=== PATIENT | male | born 1970 | race African-American/Black ===

== ENCOUNTER 2016-05-25 23:01 | Emergency (ER) | payer SELFPAY ==
[2016-05-25 23:34] VITALS: BP 130/70; PULSE 90; TEMP 98.5; BMI 29.7
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
[2016-05-26] MEDS ORDERED: IBUPROFEN 600 MG TABLET (FP) PO ONE ×2 (00:18→00:23)
== END 2016-05-26 02:47 | disposition home or self-care (01) ==
LOC: SUPCPDRO 23:01 → JER 23:01
DX: S69.81XA Other specified injuries of right wrist, hand and finger(s), initial encounter (principal); Y04.2XXA Assault by strike against or bumped into by another person, initial encounter; Y93.89 Activity, other specified; Y92.048 Other place in boarding-house as the place of occurrence of the external cause; Y07.499 Other family member, perpetrator of maltreatment and neglect; F31.9 Bipolar disorder, unspecified; F90.9 Attention-deficit hyperactivity disorder, unspecified type; F41.8 Other specified anxiety disorders; I10 Essential (primary) hypertension; G40.909 Epilepsy, unspecified, not intractable, without status epilepticus; F17.210 Nicotine dependence, cigarettes, uncomplicated
CPT/HCPCS: 70450-TC; 73130-TC-RT; 99283-25

== ENCOUNTER 2017-03-17 17:16 | Emergency (ER) | payer OTHER ==
[2017-03-17 17:26] VITALS: TEMP 98; BMI 30.9
[2017-03-17 17:31] VITALS: BP 104/40; PULSE 74
[2017-03-17] MEDS ORDERED: ASPIRIN 81 MG CHEWABLE TABLETS PO ONE (18:20)
--- NOTE | 2017-03-17 18:20 | PDOC ---
History of Present Illness - General History Source: Patient Exam Limitations: No Limitations - History of Present Illness Initial Comments: 03/17/17 18:43 The patient is a 46-year-old male with a significant past medical history of epilepsy, ADHD, and bipolar disorder, and presents to the emergency department sent from [address] [place] [address] where he went for a regular check up. Patient states that he went away for a while and has been off his medication, so he presented to the clinic to to request his renewal for his medication. He presented to ED for an EKG. He also states that he just met his biological fathers family who passed from colon cancer and he expressed concern. Denies any psx. The patient denies chest pain, shortness of breath, headache and dizziness. The patient denies fever, chills, nausea, vomit, diarrhea and constipation. The patient denies dysuria, frequency, urgency and hematuria. Allergies: NKDA <Key Hinkle - Last Filed: 03/17/17 18:43> <Teressa Valenzuela - Last Filed: 03/18/17 01:10> - General Chief Complaint: Chest Pain Stated Complaint: CHEST PAIN Time Seen by Provider: 03/17/17 17:31 Past History <Key Hinkle - Last Filed: 03/17/17 18:43> - Past Medical History Asthma: Yes COPD: No Psychiatric Problems: Yes (anxiety, Bipolar, adhd,panic attacks,depression) Seizures: Yes - Immunization History Immunization Up to Date: No - Suicide/Smoking/Psychosocial Hx Smoking History: Current every day smoker Have you smoked in the past 12 months: No Number of Cigarettes Smoked Daily: 3 Information on smoking cessation initiated: Yes 'Breaking Loose' booklet given: 03/17/17 Hx Alcohol Use: No Drug/Substance Use Hx: No Substance Use Type: None <Teressa Valenzuela - Last Filed: 03/18/17 01:10> - Past Medical History Allergies/Adverse Reactions: Allergies Allergy/AdvReac Type Severity Reaction Status Date / Time No Known Allergies Allergy Verified 03/17/17 17:22 Home Medications: Ambulatory Orders Albuterol Sulfate Inhaler - [Ventolin Hfa Inhaler -] 2 inh PO Q6H 03/17/17 Fluticasone Prop 0.05% Nasal [Flonase -] 1 - 2 spray NS DAILY 03/17/17 Ibuprofen 800 mg PO BID 03/17/17 Levetiracetam [Keppra] 250 mg PO TID 03/17/17 Loratadine [Allergy] 10 mg PO DAILY 03/17/17 Pseudoephedrine HCl [Sudafed] 1 - 2 mg PO PRN 03/17/17 Quetiapine Fumarate [Seroquel] 150 tab PO HS 03/17/17 Review of Systems - Review of Systems Able to Perform ROS?: Yes Comments:: 03/17/17 18:43 CONSTITUTIONAL: Absent: fever, chills, diaphoresis, generalized weakness, malaise, loss of appetite HEENT: Absent: rhinorrhea, nasal congestion, throat pain, throat swelling, difficulty swallowing, mouth swelling, ear pain, eye pain, visual Changes CARDIOVASCULAR: Absent: chest pain, syncope, palpitations, irregular heart rate, lightheadedness , peripheral edema RESPIRATORY: Absent: cough, shortness of breath, dyspnea with exertion, orthopnea, wheezing, stridor, hemoptysis GASTROINTESTINAL: Absent: abdominal pain, abdominal distension, nausea, vomiting, diarrhea, constipation, melena, hematochezia GENITOURINARY: Absent: dysuria, frequency, urgency, hesitancy, hematuria, flank pain, genital pain MUSCULOSKELETAL: Absent: myalgia, arthralgia, joint swelling SKIN: Absent: rash, itching, pallor HEMATOLOGIC/IMMUNOLOGIC: Absent: easy bleeding, easy bruising, lymphadenopathy, frequent infections ENDOCRINE: Absent: unexplained weight gain, unexplained weight loss, heat intolerance, cold intolerance NEUROLOGIC: Absent: headache, focal weakness or paresthesias, dizziness, unsteady gait, seizure, mental status changes, bladder or bowel incontinence PSYCHIATRIC: Absent: anxiety, depression, suicidal or homicidal ideation, hallucinations. <Key Hinkle - Last Filed: 03/17/17 18:43> *Physical Exam - Vital Signs Last Vital Signs Temp Pulse Resp BP Pulse Ox 98.0 F 74 16 104/40 97 03/17/17 17:22 03/17/17 17:22 03/17/17 17:22 03/17/17 17:22 03/17/17 17:22 - Physical Exam Comments: 03/17/17 18:43 GENERAL: Well developed, well nourished. Awake and alert. No acute distress. HEENT: Normocephalic, atraumatic. PERRLA, EOMI. No conjunctival pallor. Sclera are non- icteric. Moist mucous membranes. Oropharynx is clear. NECK: Supple. Full ROM. No JVD. Carotid pulses 2+ and symmetric, without bruits. No thyromegaly. No lymphadenopathy. CARDIOVASCULAR: Regular rate and rhythm. No murmurs, rubs, or gallops. Distal pulses are 2+ and symmetric. PULMONARY: No evidence of respiratory distress. Lungs clear to auscultation bilaterally. No wheezing, rales or rhonchi. ABDOMINAL: Soft. Non-tender. Non-distended. No rebound or guarding. No organomegaly. Normoactive bowel sounds. MUSCULOSKELETAL Normal range of motion at all joints. No bony deformities or tenderness. No CVA tenderness. EXTREMITIES: No cyanosis. No clubbing. No edema. No calf tenderness. SKIN: Warm and dry. Normal capillary refill. No rashes. No jaundice. NEUROLOGICAL: Alert, awake, appropriate. Cranial nerves 2-12 intact. No deficits to light touch and temperature in face, upper extremities and lower extremities. No motor deficits in the in face, upper extremities and lower extremities. Normoreflexic in the upper and lower extremities. Normal speech. Toes are down-going bilaterally. Gait is normal without ataxia. PSYCHIATRIC: Cooperative. Good eye contact. Appropriate mood and affect. <Key Hinkle - Last Filed: 03/17/17 18:43> - Vital Signs Last Vital Signs Temp Pulse Resp BP Pulse Ox 98.0 F 74 16 104/40 97 03/17/17 17:22 03/17/17 17:22 03/17/17 17:22 03/17/17 17:22 03/17/17 17:22 <Teressa Valenzuela - Last Filed: 03/18/17 01:10> ED Treatment Course - Medications Given in the ED: ED Medications Discontinued Medications Generic Name Dose Route Start Last Admin Trade Name Freq PRN Reason Stop Dose Admin Aspirin 162 mg 03/17/17 18:20 03/17/17 18:26 Asa - PO 03/17/17 18:21 162 mg ONCE ONE Administration <Key Hinkle - Last Filed: 03/17/17 18:43> - LABORATORY CBC & Chemistry Diagram: 03/17/17 18:25 12/18/17 18:25 <Teressa Valenzuela - Last Filed: 03/18/17 01:10> Medical Decision Making - Medical Decision Making 03/18/17 01:04 46-year-old male was seen at the clinic today and told that he had had some chest discomfort in the past. EKG was done here did not show any acute cardiac ischemia. Troponin is negative. Patient denies any fever or chills or nausea or vomiting or cough, shortness of breath. Patient denied any chest pain upon arrival. Patient states that he saw a primary care physician earlier today but no bloods were drawn CBC is unremarkable. Chemistry showed elevated cr=1.7 pt was given a copy of his labs and will follow up with his primary physician. Patient discharged home 03/18/17 01:08 <Teressa Valenzuela - Last Filed: 03/18/17 01:10> *DC/Admit/Observation/Transfer - Attestations Scribe Attestion: 03/17/17 18:44 Documentation prepared by SUNDAY White, acting as vice president medical affairs for Teressa Valenzuela MD/DO. <Key Hinkle - Last Filed: 03/17/17 18:43> <Teressa Valenzuela - Last Filed: 03/18/17 01:10> Diagnosis at time of Disposition: Atypical chest pain - Discharge Dispostion Disposition: HOME Condition at time of disposition: Stable - Referrals Referrals: Joann White NP [Primary Care Provider] - Darwin Fitzpatrick MD [Staff Physician] - - Patient Instructions Printed Discharge Instructions: DI for Atypical Chest Pain Additional Instructions: please follow up with your regular doctor or go to [facility] Internal Medicine group - Post Discharge Activity
[2017-03-17] MEDS ORDERED: ASPIRIN 81 MG CHEWABLE TABLETS ONE (18:29)
[2017-03-17 19:19] LABS: INR 1.09 (0.82-1.09); PROTHROMBIN TIME (PATIENT) 12.3 SEC (9.98-11.88)
[2017-03-17 19:23] LABS: BASO % 1.4 % (0-2.0); EOS % 7.7 % (0-4.5); MCH 29.7 pg (25.7-33.7); MCHC 33.1 g/dl (32.0-35.9); MEAN CELL VOLUME 89.8 fl (80-96); MEAN PLT VOLUME 8.2 fl (7.5-11.1); NEUT % 37.6 % (42.8-82.8); PLATELET COUNT 237 K/MM3 (134-434); WHITE BLOOD COUNT 6.9 K/mm3 (4.0-10.0)
[2017-03-17 19:45] LABS: ALBUMIN 3.3 g/dl (3.4-5.0); ANION GAP 8 (8-16); BILIRUBIN,TOTAL 0.3 mg/dL (0.2-1.0); CALCIUM 8.2 mg/dL (8.5-10.1); CO2 26 mmol/L (21-32); CREATININE 1.7 mg/dL (0.7-1.3); GLUCOSE,RANDOM 100 mg/dL (74-106); MAGNESIUM 2.2 mg/dL (1.8-2.4); SGOT/AST 75 U/L (15-37); SGPT/ALT 184 U/L (12-78); TOT PROT 7.1 g/dl (6.4-8.2)
[2017-03-17 19:47] LABS: ALK PHOS 88 U/L (45-117); CPK 359 IU/L (39-308); TROPONIN I < 0.02 ng/ml (0.00-0.05)
--- NOTE | 2017-03-19 11:28 | EKG ---
Test Reason : Blood Pressure : / mmHG Vent. Rate : 067 BPM Atrial Rate : 067 BPM P-R Int : 168 ms QRS Dur : 086 ms QT Int : 382 ms P-R-T Axes : 061 014 004 degrees QTc Int : 403 ms NORMAL SINUS RHYTHM POSSIBLE LEFT ATRIAL ENLARGEMENT SEPTAL INFARCT , AGE UNDETERMINED ABNORMAL ECG NO PREVIOUS ECGS AVAILABLE Confirmed by AKIKO CUNNINGHAM MD ([id number]) on 03/19/2017 11:28:27 AM Referred By: Confirmed By:AKIKO CUNNINGHAM MD
== END 2017-03-17 22:04 | disposition home or self-care (01) ==
LOC: JER 17:16
DX: R07.89 Other chest pain (principal); F90.9 Attention-deficit hyperactivity disorder, unspecified type; F31.9 Bipolar disorder, unspecified; G40.909 Epilepsy, unspecified, not intractable, without status epilepticus; F17.210 Nicotine dependence, cigarettes, uncomplicated; F41.9 Anxiety disorder, unspecified
CPT/HCPCS: 36415; 71020-TC; 73070-TC-LT; 80053; 82550; 82553; 83735; 84484; 85025; 85610; 93005; 93010; 99284-25

== ENCOUNTER 2017-09-25 22:10 | Emergency (ER) | payer OTHER ==
[2017-09-25 22:17] VITALS: BP 107/62; PULSE 82; TEMP 98.2; BMI 27.4
[2017-09-26] MEDS ORDERED: NAPROXEN 500 MG TABLET (FP) PO ONE (00:27)
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
[2017-09-26] MEDS ORDERED: NAPROXEN 500 MG TABLET (FP) ONE (01:16)
== END 2017-09-26 04:48 | disposition home or self-care (01) ==
LOC: JERFT 22:10 → JER 22:10
DX: S89.81XA Other specified injuries of right lower leg, initial encounter (principal); W01.0XXA Fall on same level from slipping, tripping and stumbling without subsequent striking against object, initial encounter; Y93.89 Activity, other specified; Y92.038 Other place in apartment as the place of occurrence of the external cause; Y99.8 Other external cause status; W50.0XXA Accidental hit or strike by another person, initial encounter; F31.9 Bipolar disorder, unspecified; F41.9 Anxiety disorder, unspecified; F90.9 Attention-deficit hyperactivity disorder, unspecified type; F41.0 Panic disorder [episodic paroxysmal anxiety]; F17.210 Nicotine dependence, cigarettes, uncomplicated; Z86.69 Personal history of other diseases of the nervous system and sense organs
CPT/HCPCS: 73562-TC-RT-FY; 99282-25

== ENCOUNTER 2018-06-14 13:39 | Emergency (ER) | payer OTHER ==
[2018-06-14 13:53] VITALS: BMI 29.3
--- NOTE | 2018-06-14 14:01 | PDOC ---
History of Present Illness - General Chief Complaint: Lightheaded Stated Complaint: DIZZINESS,CHEST PAIN,SOB Time Seen by Provider: 06/14/18 13:53 - History of Present Illness Initial Comments: 06/14/18 14:00 47 yo M with h/o seizure disorder, GERD, who p/w diffuse pleuritic chest pain, myalgias, cough. Patient reports 3-4 weeks of yellow, sputum productive cough, and rhinoorhea. Now p/w 1 week of SOB, widespread myalgias, diffuse pleuritic chest pain, nausea without vomiting, lightheadedness, subjective fevers. Symptoms not alleviated with Tylenol OTC. Patient denies vision change, palpitations, wheezing, orthopena, PND, leg swelling/pain, urinary complaints, hematuria, BPR, abdominal pain, diarrhea, constipation, lightheadedness, weakness, sensory changes. PMHx: as noted above ROS: as noted SHx: +tobacco use. Denies IVDA Allergies: NKDA Past History - Past Medical History Allergies/Adverse Reactions: Allergies Allergy/AdvReac Type Severity Reaction Status Date / Time influenza virus vaccine, Allergy Verified 06/14/18 13:54 specific Home Medications: Ambulatory Orders Albuterol Sulfate Inhaler - [Ventolin Hfa Inhaler -] 2 inh PO Q6H 03/17/17 Fluticasone Prop 0.05% Nasal [Flonase -] 1 - 2 spray NS DAILY 03/17/17 Ibuprofen 800 mg PO BID 03/17/17 Levetiracetam [Keppra] 250 mg PO TID 03/17/17 Loratadine [Allergy] 10 mg PO DAILY 03/17/17 Pseudoephedrine HCl [Sudafed] 1 - 2 mg PO PRN 03/17/17 Quetiapine Fumarate [Seroquel] 150 tab PO HS 03/17/17 Asthma: Yes COPD: No Psychiatric Problems: Yes (anxiety, Bipolar, adhd,panic attacks,depression) Seizures: Yes Other medical history: NARCOLEPSY - Immunization History Immunization Up to Date: No - Suicide/Smoking/Psychosocial Hx Smoking History: Former smoker Have you smoked in the past 12 months: Yes Number of Cigarettes Smoked Daily: 3 If you are a former smoker, when did you quit?: 1 MONTH AGO Information on smoking cessation initiated: No 'Breaking Loose' booklet given: 03/17/17 Hx Alcohol Use: No Drug/Substance Use Hx: No Substance Use Type: None Review of Systems - Review of Systems Comments:: 06/14/18 14:01 GENERAL/CONSTITUTIONAL: No fever or chills. No weakness. HEAD, EYES, EARS, NOSE AND THROAT:+ Sore throat. No change in vision. No ear pain or discharge. CARDIOVASCULAR:+ chest pain and shortness of breath RESPIRATORY: + cough. no wheezing, or hemoptysis. GASTROINTESTINAL: No nausea, vomiting, diarrhea or constipation. GENITOURINARY: No dysuria, frequency, or change in urination. MUSCULOSKELETAL: No joint or muscle swelling or pain. No neck or back pain. SKIN: No rash NEUROLOGIC: + lightheadedness. No headache, vertigo, loss of consciousness, or change in strength/sensation. ENDOCRINE: No increased thirst. No abnormal weight change HEMATOLOGIC/LYMPHATIC: No anemia, easy bleeding, or history of blood clots. ALLERGIC/IMMUNOLOGIC: No hives or skin allergy. *Physical Exam - Vital Signs Last Vital Signs Temp Pulse Resp BP Pulse Ox 100.8 F H 97 H 22 H 117/79 96 06/14/18 13:47 06/14/18 13:47 06/14/18 13:47 06/14/18 13:47 06/14/18 13:47 - Physical Exam Comments: 06/14/18 14:01 GENERAL: Awake, alert, and fully oriented, in no acute distress HEAD: No signs of trauma, normocephalic, atraumatic EYES: PERRLA, EOMI, sclera anicteric, conjunctiva clear ENT: Auricles normal inspection, hearing grossly normal, nares patent, oropharynx clear without exudates. Moist mucosa NECK: Normal ROM, supple, no lymphadenopathy, JVD, or masses LUNGS: No distress, speaks full sentences, clear to auscultation bilaterally HEART: Regular rate and rhythm, normal S1 and S2, no murmurs, rubs or gallops, peripheral pulses normal and equal bilaterally. ABDOMEN: Soft, nontender, normoactive bowel sounds. No guarding, no rebound. No masses EXTREMITIES : Normal inspection, Normal range of motion, no edema. No clubbing or cyanosis. NEUROLOGICAL: Cranial nerves II through XII grossly intact. Normal speech, normal gait, no focal sensorimotor deficits SKIN: Warm, Dry, normal turgor, no rashes or lesions noted Moderate Sedation - Procedure Monitoring Vital Signs: Procedure Monitoring Vital Signs Temperature 100.8 F H 06/14/18 13:47 Pulse Rate 97 H 06/14/18 13:47 Respiratory Rate 22 H 06/14/18 13:47 Blood Pressure 117/79 06/14/18 13:47 O2 Sat by Pulse Oximetry (%) 96 06/14/18 13:47 ED Treatment Course - LABORATORY CBC & Chemistry Diagram: 06/14/18 14:06 06/14/18 14:06 Medical Decision Making - Medical Decision Making 06/14/18 14:12 47 yo M with h/o GERD, who p/w diffuse pleuritic chest pain, myalgias, cough x 1 week. Temp 100.8, HR 97, vitals otherwise wnl, A&Ox3. Physical exam unremarkable. R/o PNA. PERC NEG PE. Will consider flu, viral URI, COPD. ED Course: Tylenol, NS 1 L EKG: NSR, HR 100, with absent CATHERINE, STD. Normal interval duration and axis. 06/14/18 15:43 CXR: Unremarkable CBC, CMP: Unremarkable Patient stable for d/c with return precautions. *DC/Admit/Observation/Transfer Diagnosis at time of Disposition: Chest pain, pleuritic - Discharge Dispostion Disposition: HOME Condition at time of disposition: Stable Decision to Admit order: No - Referrals Referrals: ON STAFF,NOT [Primary Care Provider] - - Patient Instructions Printed Discharge Instructions: DI for Cough -- Adult Additional Instructions: Please return to the emergency department with any new or worsening symptoms or concerns. Please follow up with your primary care physician within 72 hours. Can take Motrin 600 mg every 6 hours and Tylenol 650 mg every 6 hours as needed for symptoms. - Post Discharge Activity - Attestations Physician Attestion: 06/14/18 14:12 I attest to the information provided in this note.
[2018-06-14 14:20] LABS: BASO % 1.8 % (0-2.0); EOS % 1.2 % (0-4.5); HEMATOCRIT 41.1 % (35.4-49); HEMOGLOBIN 14.4 GM/dL (11.7-16.9); LYMPH % 28.9 % (8-40); MCHC 35.1 g/dl (32.0-35.9); MEAN CELL VOLUME 91.2 fl (80-96); MEAN PLT VOLUME 7.8 fl (7.5-11.1); MONO % 24.7 % (3.8-10.2); NEUT % 43.4 % (42.8-82.8); PLATELET COUNT 177 K/MM3 (134-434); RDW 14.2 % (11.9-15.9); WHITE BLOOD COUNT 4.9 K/mm3 (4.0-10.0)
[2018-06-14] MEDS ORDERED: SODIUM CHLORIDE 1,000 ML IV STA (14:20)
[2018-06-14] MEDS ORDERED: ACETAMINOPHEN 1000 MG/100 ML VIAL (NON FORMULARY) IVPB ONE (14:20)
[2018-06-14] MEDS ORDERED: ACETAMINOPHEN INJECTION 100 ML IVPB ONE (14:21)
[2018-06-14 14:49] LABS: ALBUMIN 3.4 g/dl (3.4-5.0); ALK PHOS 77 U/L (45-117); ANION GAP 6 MMOL/L (8-16); BILIRUBIN,TOTAL 0.2 mg/dL (0.2-1); BLOOD UREA NITROGEN 9 mg/dL (7-18); CALCIUM 8.6 mg/dL (8.5-10.1); CHLORIDE 104 mmol/L (98-107); CO2 27 mmol/L (21-32); CREATININE 1.4 mg/dL (0.55-1.3); GLUCOSE,RANDOM 127 mg/dL (74-106); POTASSIUM 4.1 mmol/L (3.5-5.1); SGOT/AST 52 U/L (15-37); SGPT/ALT 70 U/L (13-61); SODIUM 138 mmol/L (136-145); TOT PROT 7.3 g/dl (6.4-8.2)
--- NOTE | 2018-06-14 15:16 | PDOC ---
Attending Attestation - HPI HPI: 06/14/18 15:50 The patient is a 47 year old male, with a significant past medical history of epilepsy, ADHD, and bipolar disorder, who presents to the emergency department with, cold symptoms. As per patient, he has been experiencing 3-4 weeks of a productive cough with yellow sputum with nasal congestion. Over the past week, patient notes intermittent fevers, nausea, lightheadedness, pleuritic chest pain , diffuse myalgias, and shortness of breath. Patient notes taking Tylenol, without relief prompting his arrival. He denies any recent diarrhea or constipation. He denies any recent dysuria, frequency, urgency or hematuria. Allergies: Influenza virus vaccine. Past surgical history: None reported. Social History: Smoker. Neurologist: Dr. Fernández. <Red Burden - Last Filed: 06/14/18 15:50> - Resident Resident Name: Jeffrey Yoon - ED Attending Attestation I have performed the following: I have examined & evaluated the patient, The case was reviewed & discussed with the resident, I agree w/resident's findings & plan, Exceptions are as noted - Physicial Exam PE: 06/14/18 16:00 GENERAL: The patient is awake, alert, and fully oriented, Nontoxic - in no acute distress. HEAD: Normocephalic, atraumatic. EYES: extraocular movements intact, sclera anicteric, conjunctiva clear. ENT: Normal voice, Moist mucous membranes, posterior oropharynx non erythemadous without exudates, several hypertrophied papilla on mid tongue NECK: Normal range of motion, supple, neg brudzinski or kernigs LUNGS: Breath sounds equal, clear to auscultation bilaterally. No wheezes, no rhonchi, no rales. HEART: Regular rate and rhythm, normal S1 and S2 without murmur, rub or gallop. ABDOMEN: Soft, nontender, normoactive bowel sounds. No guarding, no rebound. . No CVA tenderness EXTREMITIES: Normal range of motion, no edema. No clubbing or cyanosis. No cords, erythema, or tenderness. NEUROLOGICAL: No facial assymetry, Normal speech, PSYCH: Normal mood, normal affect. SKIN: hot to touch, Dry, normal turgor, - Medical Decision Making 06/14/18 15:35 47y M hx of seizures, gerd, presents with complaint of pleutic cp, myalgias, cough x 3-4 weeks with nasal congestion and cough productive of yellowish sputum , endores subjective fever/chills, intermittent nausea, lgitheahdness likely viral syndrome vs influenza no signs of meningusmus will give tylenol, fluids for hydration flu negative here labs reviewed cr at 1.4, will continue to hydrate anticipate dc with pmd fu and supportive care A portion of this note was documented by scribe services under my direction. I have reviewed the details of the note, within reason, and agree with the documentation with the following case summary and management plan written by me <Drew Levi - Last Filed: 06/14/18 16:09> Heart Score/ECG Review - ECG Impressions Comment:: 06/14/18 16:09 Twelve-lead EKG was performed and reviewed by me. There is normal sinus rhythm with a normal rate. Rate of 100 The axis is normal. The intervals are normal. <Drew Levi - Last Filed: 06/14/18 16:09> Attestations - Attestations 06/14/18 15:50 Documentation prepared by Red Burden, acting as medical device sales for Drew Levi MD. <Red Burden - Last Filed: 06/14/18 15:50>
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
[2018-06-14 15:43] LABS: ANISOCYTOSIS 1+; MACROCYTOSIS 0; PLATELET ESTIMATE NORMAL
[2018-06-14 15:54] VITALS: BP 107/44; PULSE 90; TEMP 99.7
[2018-06-14] MEDS ORDERED: SODIUM CHLORIDE 1,000 ML IV ONE (16:00)
== END 2018-06-14 17:41 | disposition home or self-care (01) ==
LOC: JER 13:39
PROC: 3E0337Z Introduction of Electrolytic and Water Balance Substance into Peripheral Vein, Percutaneous Approach (ICD-10-PCS; principal; 2018-06-14)
PROC: 3E033NZ Introduction of Analgesics, Hypnotics, Sedatives into Peripheral Vein, Percutaneous Approach (ICD-10-PCS; 2018-06-14)
DX: R07.89 Other chest pain (principal); G40.909 Epilepsy, unspecified, not intractable, without status epilepticus; K21.9 Gastro-esophageal reflux disease without esophagitis; Z86.59 Personal history of other mental and behavioral disorders; F17.210 Nicotine dependence, cigarettes, uncomplicated
CPT/HCPCS: 36415; 71046-TC-FY; 80053; 85025; 87804; 93005; 93010; 96361; 96374; 99283-25; J0131; J7030

== ENCOUNTER 2018-09-01 18:11 | Emergency (ER) | payer OTHER | END 2018-09-02 00:32 | disposition home or self-care (01) | LOC: JER 09-02 00:32 | DX: R07.9 Chest pain, unspecified (principal); J45.909 Unspecified asthma, uncomplicated; G40.909 Epilepsy, unspecified, not intractable, without status epilepticus; Z86.59 Personal history of other mental and behavioral disorders ==

== ENCOUNTER 2019-04-30 15:48 | Emergency (ER) | payer OTHER ==
[2019-04-30 16:13] VITALS: BP 112/63; PULSE 83; TEMP 97.8; BMI 30.4
[2019-04-30] MEDS ORDERED: KETOROLAC TROMETHAMINE 60 MG/2 ML VIAL IM ONE (17:01)
[2019-04-30] MEDS ORDERED: KETOROLAC TROMETHAMINE 60 MG/2 ML VIAL ONE (17:07)
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
== END 2019-04-30 17:51 | disposition home or self-care (01) ==
LOC: JERFT 15:48
PROC: 3E0233Z Introduction of Anti-inflammatory into Muscle, Percutaneous Approach (ICD-10-PCS; principal; 2019-04-30)
DX: S46.912A Strain of unspecified muscle, fascia and tendon at shoulder and upper arm level, left arm, initial encounter (principal); S46.911A Strain of unspecified muscle, fascia and tendon at shoulder and upper arm level, right arm, initial encounter; X58.XXXA Exposure to other specified factors, initial encounter; Y93.89 Activity, other specified; Y92.89 Other specified places as the place of occurrence of the external cause; Z88.8 Allergy status to other drugs, medicaments and biological substances
CPT/HCPCS: 96372; 99281-25

== ENCOUNTER 2023-10-16 19:35 | Emergency (ER) | payer OTHER ==
[2023-10-16 19:46] VITALS: BP 133/56; PULSE 98; RESP 20; TEMP 98.8; BMI 26.3
[2023-10-16] MEDS ORDERED: ACETAMINOPHEN 500 MG TABLET (FP) ONE (21:03)
[2023-10-16] MEDS: ACETAMINOPHEN 500 MG TABLET (FP) PO ONE (21:06)
== END 2023-10-16 22:22 | disposition home or self-care (01) ==
LOC: JERFT 19:35
DX: S92.355A Nondisplaced fracture of fifth metatarsal bone, left foot, initial encounter for closed fracture (principal); W22.8XXA Striking against or struck by other objects, initial encounter
CPT/HCPCS: 73610-TC-LT-FY; 73630-TC-LT; 99283-25

== ENCOUNTER 2023-12-15 13:20 | Emergency (ER) | payer OTHER ==
[2023-12-15 13:33] VITALS: BP 135/79; PULSE 85; RESP 20; TEMP 98.3; BMI 27.7
[2023-12-15] MEDS ORDERED: SULFAMETHOXAZOLE/TRIMETHOPRIM 800MG/160MG D.S. TABLET ONE (14:52)
[2023-12-15] MEDS ORDERED: ACETAMINOPHEN 500 MG TABLET (FP) ONE (14:53)
[2023-12-15] MEDS: SULFAMETHOXAZOLE/TRIMETHOPRIM 800MG/160MG D.S. TABLET PO ONE (14:55)
[2023-12-15] MEDS: ACETAMINOPHEN 500 MG TABLET (FP) PO ONE (14:56)
[2023-12-15 16:52] LABS: HIV INTERPRETATION NEGATIVE (NEGATIVE)
== END 2023-12-15 17:07 | disposition home or self-care (01) ==
LOC: JER 13:20
DX: L03.011 Cellulitis of right finger (principal); M79.644 Pain in right finger(s)
CPT/HCPCS: 36415; 73140-TC-RT-FY; 86803; 87389; 99284-25

== ENCOUNTER 2023-12-17 12:56 | Emergency (ER) | payer OTHER ==
[2023-12-17 14:06] VITALS: RESP 16; BMI 27.3
[2023-12-17] MEDS: CLINDAMYCIN 600MG PREMIX IVPB 600 MG/50 ML BAG IVPB ONE (14:30)
[2023-12-17] MEDS ORDERED: AMPICILLIN NA/SULBACTAM NA 1.5 GM VIAL ONE (14:41)
[2023-12-17] MEDS ORDERED: CLINDAMYCIN 600MG PREMIX IVPB 600 MG/50 ML BAG IVPB ONE (14:42)
[2023-12-17 14:44] LABS: BASO % 1.8 % (0-2.0); EOS % 3.3 % (0-4.5); HEMATOCRIT 41.2 % (35.4-49); HEMOGLOBIN 13.5 GM/dL (11.7-16.9); LYMPH % 33.3 % (8-40); MCH 29.6 pg (25.7-33.7); MCHC 32.8 g/dl (32.0-35.9); MEAN CELL VOLUME 90.1 fl (80-96); MEAN PLT VOLUME 7.6 fl (7.5-11.1); MONO % 11.3 % (3.8-10.2); NEUT % 50.3 % (42.8-82.8); PLATELET COUNT 237 10^3/uL (134-434); RBC 4.57 M/mm3 (4.00-5.60); RDW 14.6 % (11.9-15.9); WHITE BLOOD COUNT 7.3 K/mm3 (4.0-10.0)
[2023-12-17 14:53] LABS: INR 0.87 (0.83-1.09)
[2023-12-17 14:56] LABS: ACTIVATED PTT 28.5 SECONDS (25.2-36.5)
[2023-12-17] MEDS: AMPICILLIN NA/SULBACTAM NA 1.5 GM in SODIUM CHLORIDE 100 ML IVPB ONE (14:59)
[2023-12-17 15:14] LABS: POTASSIUM 4.5 mmol/L (3.5-5.1)
[2023-12-17 15:15] LABS: CALCIUM 8.9 mg/dL (8.5-10.1)
[2023-12-17 15:16] LABS: ALBUMIN 3.3 g/dl (3.4-5.0); BLOOD UREA NITROGEN 9.2 mg/dL (7-18)
[2023-12-17 15:19] LABS: CREATININE 1.2 mg/dL (0.55-1.3)
[2023-12-17 15:21] LABS: BILIRUBIN,TOTAL 0.2 mg/dL (0.2-1); TOT PROT 6.9 g/dl (6.4-8.2)
[2023-12-17 16:39] VITALS: PULSE 74
[2023-12-17 17:02] VITALS: BP 146/84; TEMP 98.9
== END 2023-12-17 17:20 | disposition short-term general hospital (02) ==
LOC: JER 12:56
DX: M65.841 Other synovitis and tenosynovitis, right hand (principal); M79.89 Other specified soft tissue disorders; R06.02 Shortness of breath
CPT/HCPCS: 36415; 71045-TC-FY; 80053; 85025; 85610; 85651; 85730; 86140; 86850; 86900; 86901; 93005; 93010; 99285-25